=== PATIENT | female | born 1965 | race African-American/Black ===

== ENCOUNTER 2016-12-22 13:29 | Emergency (ER) | payer MEDICAID ==
[~2016-12-22 13:29] MED LIST: ALOXI0.25 MG/5 IV; AMOXICILLIN875 MG PO; AUGMENTIN875 MG/TA1 PO; BENICAR HCT 40-1 T PO; BENTYL20 MG PO; BLEOMYCIN IJ; CLARITIN10 M8 PO; COMPAZINE10 MG PO; CORTISPORIN EAR10 M2 OT; CORTISPORIN-TC10 M2 OT; DACARBAZINE IV; DEXAMETHASONE0.5 M1 PO; DOXORUBICIN2 MG/1 ML IV; FLOXIN10 ML OT; HYDROCHLOROTHIA25 MG PO; IBUPROFEN600 MG PO; LASIX20 MG PO; LASIX80 MG PO; LISINOPRIL-HCT1 EAC1 PO; LISINOPRIL-HCT1 EAC2 PO; LISINOPRIL20 MG PO; NORCO 10/325 TA1 TAB PO; NORCO 5-325 TA1 EACH PO; NORCO 5/325 TAB1 TAB PO; NUCYNTA50 MG PO; PRILOSEC20 MG PO; PROVENTIL HFA6.7 GM IH; PROVENTIL0.83 MG/ML IH; SIMVASTATIN10 MG PO; SOMA350 MG PO; STOOL SOFTENER100 M2 PO; TOPROL XL25 MG PO; TOPROL XL50 MG PO; TRAMADOL HCL50 M2 PO; TRAMADOL HCL50 MG PO; ULTRAM50 M1 PO; ULTRAM50 MG PO; VALIUM2 M1 PO; VALIUM2 MG PO; VALIUM5 M1 PO; VINBLASTIN10 MG/10 M IV; ZESTORETIC 20-1 EAC3 PO; ZESTORETIC PO; ZOFRAN ODT4 MG PO; ZOFRAN ODT4 MG/UDTAB PO; [UNRECOGNIZED DRUG - OTHER] PO
[2016-12-22 14:35] LABS: BASO % 0.3 % (0-2); EOS % 2.7 % (0-7); EOSINOPHIL ABSOLUTE COUNT 0.2 tho/cmm (0.0-0.7); HCT-HEMATOCRIT 38.6 % (34.0-49.0); HGB-HEMOGLOBIN 12.8 gm/dl (12.0-15.5); IMMATURE GRANULOCYTES ABSOLUTE 0.01 tho/cmm (0-0.03); IMMATURE GRANULOCYTES PERCENT 0.2 % (0-0.3); LYMPH % 23.5 % (20-45); LYMPH ABSOLUTE COUNT 1.4 tho/cmm (0.8-4.5); MCH (MEAN CORPUSCULAR HGB) 26.4 pg (28.0-32.0); MCHC MEAN CORPUSCULAR HGB CONC 33.2 % (32.0-36.0); MCV (MEAN CELL VOLUME) 79.8 fl (82.0-96.0); MEAN PLATELET VOLUME 10.3 cmc (9.4-12.4); MONO % 4.9 % (0-12); MONOCYTE ABSOLUTE COUNT 0.3 tho/cmm (0.0-1.2); NEUTROPHIL ABSOLUTE COUNT 4.1 tho/cmm (1.6-8.0); NEUTROPHIL-AUTOMATED 4.1 tho/cmm (1.6-8.0); NEUTROPHILS % 68.4 % (40-80); PLATELET COUNT 258 tho/cmm (150-450); RED BLOOD COUNT 4.84 mil/cmm (4.00-5.20); RED CELL DISTRIBUTION WIDTH 15.4 % (12.4-16.4)
[2016-12-22 15:06] LABS: ANION GAP 11 mmol/L (0-20); BLOOD UREA NITROGEN 16 mg/dl (6-24); CALCIUM 9.4 mg/dl (8.5-10.5); CARBON DIOXIDE-VENOUS 27 mmol/L (22-32); CHLORIDE 110 mmol/l (96-110); CREATININE 0.91 mg/dl (0.50-1.10); GLUCOSE 96 mg/dL (70-110); POTASSIUM 3.8 mmol/L (3.7-5.1); SODIUM 144 mmol/L (135-145); eGFR VALUE FOR BLACK 84 mL/Min
[2016-12-22 15:10] LABS: PROCALCITONIN <0.05 ng/ml (0.05-0.09)
== END 2016-12-22 16:22 ==
LOC: EDMED 13:29
PROVIDERS: Emergency Medicine
DX: J40 Bronchitis, not specified as acute or chronic (principal); J90 Pleural effusion, not elsewhere classified

== ENCOUNTER 2017-02-15 10:21 | Emergency (ER) | payer MEDICAID ==
[2017-02-15] MEDS ORDERED: OXYCODONE HCL5 M1 PO (11:40)
== END 2017-02-15 11:50 ==
LOC: EDMED 10:21
DX: S93.521A Sprain of metatarsophalangeal joint of right great toe, initial encounter (principal); I10 Essential (primary) hypertension; Z85.72 Personal history of non-Hodgkin lymphomas; Z87.891 Personal history of nicotine dependence; Z79.899 Other long term (current) drug therapy; W22.8XXA Striking against or struck by other objects, initial encounter; Y92.019 Unspecified place in single-family (private) house as the place of occurrence of the external cause